=== PATIENT | female | born 1990 ===

== ENCOUNTER 2016-10-15 21:38 | Observation (INO) | payer OTHER ==
[2016-10-15] MEDS ORDERED: PRENA1 CHEW TA1.4 M1 (22:46)
[2016-10-15] MEDS ORDERED: HYDROXYZINE PAM25 M2 (22:47)
[2016-10-15] MEDS ORDERED: RANITIDINE HCL150 M3 PO (22:48)
== END 2016-10-16 07:35 ==
LOC: LDR 21:38
PROVIDERS: ADMIT Obstetrics & Gynecology
DX: O47.03 False labor before 37 completed weeks of gestation, third trimester (principal); Z3A.29 29 weeks gestation of pregnancy; Z88.0 Allergy status to penicillin; Z79.899 Other long term (current) drug therapy
CPT/HCPCS: G0378; G0379; J3105